=== PATIENT | female | born 2005 | race Caucasian/White ===

== ENCOUNTER 2024-08-15 07:38 | Emergency (ER) | payer MEDICAID ==
[~2024-08-15] VITALS: Ht 157.5 cm; Wt 52.6 kg
[2024-08-15] MEDS ORDERED: MORPHINE SULFATE 2 MG/1 ML DISP.SYRIN ONE (08:27)
[2024-08-15] MEDS ORDERED: METOCLOPRAMIDE HCL 10 MG/2 ML VIAL ONE (08:28)
[2024-08-15 08:31] LABS: BASOPHILS # (AUTO) 0.1 K/UL (0.0-0.2); BASOPHILS % (AUTO) 0.5 % (0.0-2.0); EOSINOPHILS # (AUTO) 0.1 K/uL (0.0-0.7); EOSINOPHILS % (AUTO) 0.4 % (0.0-7.0); HEMATOCRIT 40.6 % (31.2-41.9); HEMOGLOBIN 13.8 g/dL (10.9-14.3); LYMPHOCYTES # (AUTO) 1.8 K/uL (0.8-4.8); LYMPHOCYTES % (AUTO) 11.6 % (20.5-74.5); MEAN CORPUSCULAR HEMOGLOBIN 29.5 uug (24.7-32.8); MEAN CORPUSCULAR HGB CONC 34 g/dL (32.3-35.6); MEAN CORPUSCULAR VOLUME 86.9 fL (75.5-95.3); MONOCYTES # (AUTO) 1.1 K/uL (0.1-1.30); MONOCYTES % (AUTO) 6.7 % (0-11); NEUTROPHILS # (AUTO) 12.8 K/uL (1.8-8.9); NEUTROPHILS % (AUTO) 80.8 % (31.5-64.5); PLATELET COUNT (AUTO) 264 K/uL (179-408); RED BLOOD CELL COUNT(AUTO) 4.68 MIL/uL (3.63-4.92); RED CELL DISTRIBUTION WIDTH 12.8 % (12.3-17.7); WHITE BLOOD COUNT (AUTO) 15.8 K/uL (3.8-11.8)
[2024-08-15] MEDS: METOCLOPRAMIDE HCL 10 MG/2 ML VIAL IV ONE (08:31)
[2024-08-15] MEDS: MORPHINE SULFATE 2 MG/1 ML DISP.SYRIN IV ONE (08:31)
[2024-08-15] MEDS: IV NORMAL SALINE 500 ML IV ONE (08:31)
[2024-08-15 08:34] LABS: DIFFERENTIAL COMMENT 1
[2024-08-15 09:03] LABS: CALCIUM 9.1 mg/dL (8.5-10.1); CREATININE 0.7 mg/dL (0.6-1.3); POTASSIUM 3.7 mmol/L (3.5-5.1)
[2024-08-15 09:09] LABS: ALBUMIN 3.8 g/dL (3.4-5.0); BILIRUBIN,DIRECT 0.1 mg/dL (0.0-0.2); BILIRUBIN,TOTAL 0.6 mg/dL (0.2-1.0); TOTAL PROTEIN, SERUM 7.2 g/dL (6.4-8.2)
[2024-08-15 09:10] LABS: *BILIRUBIN,URIN NEGATIVE (NEGATIVE); *CLARITY,URINE CLEAR (CLEAR); *COLOR,URINE YELLOW (YELLOW); *KETONES,URINE NEGATIVE (NEGATIVE); *PROTEIN,URINE NEGATIVE (NEGATIVE); *URINE HCG, QUAL NEGATIVE (NEGATIVE); *UROBILINOGEN,URINE 0.2 E.U./dl (NORMAL); LEUKOCYTE ESTERASE ,URINE NEGATIVE (NEGATIVE); NITRITE, URINE NEGATIVE (NEGATIVE); PH,URINE 6.5 (5.0-8.0); UGLUCOSE NEGATIVE (NEGATIVE)
[2024-08-15 09:23] LABS: *BLOOD, URINE TRACE (NEGATIVE)
[2024-08-15 09:24] LABS: BACTERIA,URINE FEW /HPF (NONE SEEN); SQUAMOUS EPITHELIAL CELL,UR FEW /HPF (NONE SEEN); WBC,URINE 0-3 /HPF (0-3)
[2024-08-15] MEDS ORDERED: KETOROLAC TROMETHAMINE 30 MG INJ ONE (09:56)
[2024-08-15] MEDS ORDERED: DICY10CA13 PO (10:03)
[2024-08-15] MEDS: KETOROLAC TROMETHAMINE 30 MG INJ IVP ONE (10:19)
[2024-08-15 10:21] VITALS: BP 135/81; TEMP 98.1; O2SAT 99
== END 2024-08-15 10:23 | disposition home or self-care (01) ==
LOC: ER 07:38
DX: R10.2 Pelvic and perineal pain (principal)
CPT/HCPCS: 99285; 76700; 96374; 96361; 96375; 80061; 80076; 80048; 81001; 84703; 83690; 85025; 36415; 76856; J1885; J2765; J2270; J7040; A4606; A4663